=== PATIENT | male | born 1930 | race Caucasian/White ===

== ENCOUNTER → 2016-07-20 | Day surgery (SDC) | payer MEDICARE, OTHER ==
[~2016-07-20] MED LIST: Dextrose 5%-0.45% NaCl 1,000 ML IV SCH; Midazolam 1 MG/ML 2 ML SDV IV ONE; Midazolam 1 MG/ML 2 ML SDV ONE; fentaNYL 100 MCG/2 ML SDV IV ONE; fentaNYL 100 MCG/2 ML SDV ONE
--- NOTE | 2016-07-20 09:38 | OR ---
DATE: 07/20/2016 PROCEDURE: Esophagogastroduodenoscopy and multiple pinch biopsies. INSTRUMENT USED: GIF-H180 Olympus video panendoscope. PREMEDICATIONS: Fentanyl 100 mcg intravenous, Versed 1.5 mg intravenous. Nasal O2 cannula. The procedure was done under pulse oximetry, BP recording, and monitor technician. 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 Followup esophagogastroduodenoscopy is done for verification of total healing of ulcers and rule out malignancy, biopsies to be obtained from the esophagus for any persistent eosinophilia, eosinophilic esophagitis under consideration, endoscopic hemostasis therapy if needed. DESCRIPTION OF PROCEDURE: The scope was passed with ease. Adequate visualization of the esophagus was made from proximal to distal areas. No upper esophageal lesions identified. No distal esophageal stricture. No uphill or downhill esophageal varices. No Meena-Torres tear. No evidence of erosive esophagitis by [place] criteria. No esophageal polyp or tumor mass identified. Keratotic area noted in the distal esophagus. No malignant mass identified. The Z-line was seen at around 38 cm distal to the oral verge, configuration consistent with grade 1 by ZAP classification. Multiple pinch biopsies were taken from the esophageal keratotic area as was 4 quadrant biopsies from distal and proximal esophagus and sent for any evidence of esophageal eosinophilia. No proximal gastric varices noted. Gastric fundus examination by retroflexion showed no polypoid lesions. No gastric ulcer, malignant mass, or vascular ectasia identified. Duodenal bulb showed no ulcer. Visualized second part of the duodenum was unremarkable. No bleeding was noted from any of the visualized areas at the completion of examination. Photographs were taken of the duodenal bulb, gastric antrum, fundus, and distal esophagus. IMPRESSION: Distal esophageal keratosis. The patient tolerated the procedure well. [facility] /[id number]
[2016-07-20 10:51] VITALS: BP 155/51
== END | disposition home or self-care (01) ==
LOC: DL.ENDO 07:21
PROVIDERS: ATTEND Internal Medicine Gastroenterology
DX: K22.8 Other specified diseases of esophagus (principal); K21.0 Gastro-esophageal reflux disease with esophagitis; K58.9 Irritable bowel syndrome, unspecified; K57.30 Diverticulosis of large intestine without perforation or abscess without bleeding; F41.1 Generalized anxiety disorder; Z87.19 Personal history of other diseases of the digestive system; Z98.890 Other specified postprocedural states
CPT/HCPCS: 43235; 88305; J2250; J3010; J7042